=== PATIENT | female | born 1945 ===

== ENCOUNTER 2023-06-17 06:43 | Day surgery (SDC) | payer OTHER ==
[2023-06-15 09:45] LABS: HEMATOCRIT 38.3 % (36.0-45.00); HEMOGLOBIN 13.2 g/dL (12.0-15.00); MEAN CORPUSCULAR HGB CONC 34.4 g/dl (32.0-36.0); PLATELET COUNT 198 K/uL (150-450); RED BLOOD COUNT 4.12 M/uL (4.00-6.00); RED CELL DISTRIBUTION WIDTH 13.2 % (11.5-14.5)
[2023-06-15 09:51] LABS: PH,URINE 7.5 (5.0-8.0); URINE APPEARANCE Clear; URINE BILIRRUBIN Negative (NEGATIVE); URINE BLOOD Trace; URINE COLOR Yellow; URINE GLUCOSE Negative (NEGATIVE); URINE LEUKOCYTE Negative; URINE NITRATE Negative; URINE PROTEIN Trace (NEGATIVE)
[2023-06-15 09:56] LABS: URINE BACTERIA 695.1 uL (0.0-1933); URINE EPITHELIAL CELLS 42.2 uL (0.0-38.8); URINE RBC 53.4 uL (0.0-20.8); URINE WBC 1.8 uL (0.0-23.2)
[2023-06-15 10:05] LABS: INR 1.07; PARTIAL THROMBOPLASTIN TIME 28.4 SECONDS (22.0-34.0); PROTHROMBIN TIME 11.2 SECONDS (9.0-11.5)
[2023-06-15 10:23] LABS: ALBUMIN 3.9 gm/dL (3.4-5.0); BILIRUBIN TOTAL 1.1 mg/dL (0.3-1.2); CALCIUM 8.9 mg/dL (8.5-10.1); CREATININE SERUM 0.83 mg/dL (0.55-1.02); GFR 66.66; GLOBULINA 2.8 G/DL (2.4-3.5); POTASSIUM 3.37 mEq/L (3.5-5.1); TOTAL PROTEIN 6.7 gm/dL (6.4-8.2)
[~2023-06-17] VITALS: Ht 144.8 cm; Wt 72.6 kg
[~2023-06-17 06:43] MED LIST: NORVASC5 MG PO; PLAVIX75 MG PO; TOPROL XL25 M1 PO
== END 2023-06-17 20:30 | disposition home or self-care (01) ==
LOC: CIR.AMB 06:43
PROVIDERS: ATTEND Surgery
DX: C50.411 Malignant neoplasm of upper-outer quadrant of right female breast (principal); N60.91 Unspecified benign mammary dysplasia of right breast; R59.0 Localized enlarged lymph nodes; Z88.6 Allergy status to analgesic agent; I10 Essential (primary) hypertension
CPT/HCPCS: 19301; 38525; 19281; A9541; L8699

== ENCOUNTER 2024-04-24 11:45 | Outpatient (CLI) | payer OTHER | END 2024-04-24 11:46 | disposition home or self-care (01) | LOC: MAMO-SONO 11:45 | PROVIDERS: ATTEND Internal Medicine Hematology & Oncology | DX: C50.411 Malignant neoplasm of upper-outer quadrant of right female breast (principal); Z17.0 Estrogen receptor positive status [ER+]; Z85.3 Personal history of malignant neoplasm of breast ==